=== PATIENT | female | born 1980 | race Caucasian/White ===

== ENCOUNTER 2016-04-02 12:44 | Emergency (ER) | payer OTHER ==
[~2016-04-02] VITALS: Ht 162.6 cm; Wt 63.6 kg
[2016-04-02 12:52] VITALS: BP 116/78; PULSE 72; RESP 16; TEMP 98.9; O2SAT 100
[2016-04-02 13:15] LABS: BLOOD, URINE NEG (NEG); GLUCOSE,URINE NEG (NEG); KETONE, URINE NEG (NEG); NITRITE,URINE NEG (NEG)
[2016-04-02 13:34] LABS: METHOD OF COLLECTION CLEAN CATCH; URINE COLOR YELLOW (YELLW/STRAW)
[2016-04-02 13:35] LABS: COMMENT (UR) CULT NOT INDICATED; CULTURE IF INDICATED CULT NOT INDICATED; SQUAMOUS EPITHELIAL CELL URINE 0-5 /hpf (0-5); WBC, URINE 0-2 /hpf (0-5)
[2016-04-02] MEDS ORDERED: SODIUM CHLOR 0.9% 1000 ML INJ 1,000 ML IV SCH (13:50)
[2016-04-02] MEDS ORDERED: SODIUM CHLORIDE 0.9% FLUSH 5 ML FLUSH IVF PRN (14:00)
[2016-04-02 14:24] VITALS: BP 104/68; PULSE 65; RESP 16; O2SAT 99
[2016-04-02 14:34] LABS: AUTOMATED NEUTROPHIL # 2.2 TH/MM3 (1.8-7.7); BASOPHIL % 0.5 % (0.0-2.0); EOSINOPHIL # 0.2 TH/MM3 (0-0.4); EOSINOPHIL % 4.4 % (0.0-4.0); HEMATOCRIT 40.2 % (35.0-46.0); HEMO FLAGS DIFF FINAL; LYMPH % 41.8 % (9.0-44.0); LYMPHOCYTE # 1.9 TH/MM3 (1.0-4.8); MEAN CELL VOLUME 84.9 FL (80.0-100.0); MEAN CORPUSCULAR HEMOGLOBIN 27.7 PG (27.0-34.0); MEAN CORPUSCULAR HGB CONC 32.6 % (32.0-36.0); MONO % 7.5 % (0.0-8.0); NEUT % 45.8 % (16.0-70.0); PLATELET COUNT 320 TH/MM3 (150-450); RED BLOOD COUNT 4.74 MIL/MM3 (4.00-5.30); RED CELL DISTRIBUTION WIDTH 13.3 % (11.6-17.2); WHITE BLOOD COUNT 4.6 TH/MM3 (4.0-11.0)
[2016-04-02 14:42] LABS: CHLORIDE 106 MEQ/L (98-107); POTASSIUM 3.9 MEQ/L (3.5-5.1); SODIUM (NA) 141 MEQ/L (136-145)
[2016-04-02 14:45] LABS: ANION GAP 8 MEQ/L (5-15); BICARBONATE 26.7 MEQ/L (21.0-32.0)
[2016-04-02 14:46] LABS: BLOOD UREA NITROGEN 8 MG/DL (7-18)
[2016-04-02 14:48] LABS: ALT (GPT) 13 U/L (10-53); AST (GOT) 12 U/L (15-37); GLOMERULAR FILTRATION RATE 106 ML/MIN (>89)
[2016-04-02 14:50] LABS: TOTAL BILIRUBIN ADULT 0.4 MG/DL (0.2-1.0)
[2016-04-02 14:51] LABS: ALKALINE PHOSPHATASE 78 U/L (45-117)
--- NOTE | 2016-04-02 14:51 | PD ---
HPI Chief Complaint: Abdominal Pain Time Seen by Provider: 13:50 Travel History International Travel<30 days: No Contact w/Intl Traveler<30days: No Traveled to known affect area: No History of Present Illness HPI Is a 36-year-old female presents with left lower quadrant abdominal pain for the past month. Went to see another physician and was told it was inflammation of left lower quadrant. This physician was in [place]. Patient is coming by her states that his is only been in the country for a few months and still learning French. He translate for her. She denies any nausea vomiting diarrhea blood in the stool or constipation. Denies any fevers. She has an appointment coming up with her new primary care physician to establish. [facility] Past Medical History Medical History: Denies Significant Hx Tetanus Vaccination: Unknown Influenza Vaccination: No ?: Not LMP: Ended 2 days ago Past Surgical History Surgical History: No Previous Surgery Social History Alcohol Use: Yes (Occ.) Tobacco Use: No Substance Use: No Allergies-Medications (Allergen,Severity, Reaction): Coded Allergies: No Known Allergies (Unverified , 04/02/16) Reported Meds & Prescriptions Reported Meds & Active Scripts Active No Active Prescriptions or Reported Medications Review of Systems Except as stated in HPI: all other systems reviewed are Neg Physical Exam Narrative GENERAL: Well-developed well-nourished no apparent distress SKIN: Warm and dry. HEAD: Atraumatic. Normocephalic. EYES: Pupils equal and round. No scleral icterus. No injection or drainage. ENT: No nasal bleeding or discharge. Mucous membranes pink and moist. NECK: Trachea midline. No JVD. CARDIOVASCULAR: Regular rate and rhythm. No murmur appreciated. RESPIRATORY: No accessory muscle use. Clear to auscultation. Breath sounds equal bilaterally. GASTROINTESTINAL: Abdomen soft, non-tender, nondistended. Hepatic and splenic margins not palpable. Rodríguez sign negative, no tenderness in McBurney's point. MUSCULOSKELETAL: No obvious deformities. No clubbing. No cyanosis. No edema. NEUROLOGICAL: Awake and alert. No obvious cranial nerve deficits. Motor grossly within normal limits. Normal speech. PSYCHIATRIC: Appropriate mood and affect; insight and judgment normal. Data Data Last Documented VS Vital Signs Date Time Temp Pulse Resp B/P Pulse Ox O2 Delivery O2 Flow Rate FiO2 04/02/16 15:27 67 16 115/73 99 04/02/16 14:24 Room Air 04/02/16 12:52 98.9 Orders Urinalysis - C+S If Indicated (04/02/16 12:53) Ed Urine Pregnancytest Poc (04/02/16 12:53) Complete Blood Count With Diff (04/02/16 13:50) Comprehensive Metabolic Panel (04/02/16 13:50) Lipase (04/02/16 13:50) Iv Access Insert/Monitor (04/02/16 13:50) Ecg Monitoring (04/02/16 13:50) Oximetry (04/02/16 13:50) Sodium Chlor 0.9% 1000 Ml Inj (Ns 1000 M (04/02/16 13:50) Sodium Chloride 0.9% Flush (Ns Flush) (04/02/16 14:00) Labs Laboratory Tests Test 04/02/16 04/02/16 13:00 14:20 Urine Collection Type CLEAN CATCH Urine Color YELLOW Urine Turbidity CLEAR Urine pH 6.0 Urine Specific [place] 1.012 Urine Protein NEG mg/dL Urine Glucose (UA) NEG mg/dL Urine Ketones NEG mg/dL Urine Occult Blood NEG Urine Nitrite NEG Urine Bilirubin NEG Urine Leukocyte Esterase NEG Urine WBC 0-2 /hpf Urine Squamous Epithelial 0-5 /hpf Cells Microscopic Urinalysis Comment CULT NOT INDICATED White Blood Count 4.6 TH/MM3 Red Blood Count 4.74 MIL/MM3 Hemoglobin 13.1 GM/DL Hematocrit 40.2 % Mean Corpuscular Volume 84.9 FL Mean Corpuscular Hemoglobin 27.7 PG Mean Corpuscular Hemoglobin 32.6 % Concent Red Cell Distribution Width 13.3 % Platelet Count 320 TH/MM3 Mean Platelet Volume 7.6 FL Neutrophils (%) (Auto) 45.8 % Lymphocytes (%) (Auto) 41.8 % Monocytes (%) (Auto) 7.5 % Eosinophils (%) (Auto) 4.4 % Basophils (%) (Auto) 0.5 % Neutrophils # (Auto) 2.2 TH/MM3 Lymphocytes # (Auto) 1.9 TH/MM3 Monocytes # (Auto) 0.3 TH/MM3 Eosinophils # (Auto) 0.2 TH/MM3 Basophils # (Auto) 0.0 TH/MM3 CBC Comment DIFF FINAL Differential Comment Sodium Level 141 MEQ/L Potassium Level 3.9 MEQ/L Chloride Level 106 MEQ/L Carbon Dioxide Level 26.7 MEQ/L Anion Gap 8 MEQ/L Blood Urea Nitrogen 8 MG/DL Creatinine 0.63 MG/DL Estimat Glomerular Filtration 106 ML/MIN Rate Random Glucose 73 MG/DL Calcium Level 8.1 MG/DL Total Bilirubin 0.4 MG/DL Aspartate Amino Transf 12 U/L (AST/SGOT) Alanine Aminotransferase 13 U/L (ALT/SGPT) Alkaline Phosphatase 78 U/L Total Protein 7.7 GM/DL Albumin 3.6 GM/DL Lipase 110 U/L [facility] Medical Decision Making Medical Screen Exam Complete: Yes Emergency Medical Condition: Yes Differential Diagnosis Gastritis, gastroenteritis, colitis, ovarian torsion unlikely, appendicitis unlikely, acute abdomen ruled out clinically. Narrative Course Patient was roomed in the emergency department, she appears well in no apparent distress. Her abdomen is completely benign soft and nontender. White blood count is normal. The remainder of her CMP as well as CBC is within normal limits. Patient was offered pain medicine states she is not currently in pain at this time. She declined a pelvic exam. Discussed with them lab results and that CT scan is unlikely beneficial at this time given her abdominal exam and negative labs. Discussed need for follow-up the primary care physician and return to ED criteria. They're agreeable. Diagnosis Primary Impression: LLQ abdominal pain Additional Instructions: Follow-up with your primary care physician. Scripts No Active Prescriptions or Reported Meds Disposition: 01 DISCHARGE HOME Condition: Stable Toni Scruggs MD Apr 02, 2016 14:51
[2016-04-02 15:27] VITALS: BP 115/73
== END 2016-04-02 15:46 | disposition home or self-care (01) ==
LOC: PHED 12:44
DX: R10.32 Left lower quadrant pain (principal)
CPT/HCPCS: 80053; 81001; 83690; 84703; 85025; 99284; J7030